=== PATIENT | male | born 1980 | race Caucasian/White ===

== ENCOUNTER → 2017-03-06 | Outpatient (CLI) | payer OTHER ==
[~2017-03-06] MED LIST: ATIVAN1 MG PO; CARAFATE1 GM/10 ML PO
== END | disposition home or self-care (01) ==
LOC: RAD 07:04
DX: M25.512 Pain in left shoulder (principal)

== ENCOUNTER 2017-05-05 18:46 | Emergency (ER) | payer OTHER ==
[~2017-05-05] VITALS: Wt 115.7 kg
[2017-05-05 18:58] LABS: BASO % 0.5 % (0.0-1.0); EOS # 0.4 10*3/uL (0.0-0.4); EOS % 7.3 % (1.0-4.0); HEMATOCRIT 44.5 % (42.0-52.0); HEMOGLOBIN 15.9 g/dl (14.0-18.0); LYMPH # 1.8 10*3/uL (1.3-4.4); LYMPH % 31.2 % (27.0-41.0); MEAN CELL VOLUME 86.4 fl (80.0-94.0); MEAN CORPUSCULAR HGB 30.9 pg (27.0-31.0); MEAN CORPUSCULAR HGB CONC 35.7 g/dl (33.0-37.0); MEAN PLATELET VOLUME 9.7 fl (9.6-12.3); MONO # 0.4 10*3/uL (0.1-1.0); MONO % 7.8 % (3.0-9.0); NEUT % 52.8 % (47.0-73.0); PLATELET COUNT AUTOMATED 248 10*3/uL (130-400); RED BLOOD COUNT 5.15 10*6/uL (4.50-5.90); RED CELL DISTRI WIDTH 12.4 % (0-14.5); WHITE BLOOD COUNT 5.6 10*3/uL (4.8-10.8)
[2017-05-05] MEDS ORDERED: QUETIAPINE FUM100 M3 PO (19:05)
[2017-05-05] MEDS ORDERED: HYDROXYZINE PAM25 M1 PO (19:05)
[2017-05-05 19:16] LABS: ACT PARTIAL THROMBO TIME 23.1 SECONDS (20.8-31.5); ALBUMIN 3.8 gm/dl (3.1-4.5); ALKALINE PHOSPHATASE 63 U/L (45-117); BUN 14 mg/dl (7-24); CHLORIDE 104 mmol/L (98-107); CREATININE 1.35 mg/dL (0.70-1.30); POTASSIUM 4.1 mmol/L (3.5-5.1); SGOT/AST 23 IU/L (3-35); SGPT/ALT 42 U/L (12-78); SODIUM 138 mmol/L (136-145); TOTAL PROTEIN 7.6 gm/dL (6.4-8.2)
[2017-05-05 19:17] LABS: TROPONIN I < 0.015 ng/ml (<0.045)
[2017-05-05] MEDS ORDERED: OMEPRAZOLE D/R20 MG PO (19:22)
== END 2017-05-05 21:33 | disposition home or self-care (01) ==
LOC: ED 18:46
PROVIDERS: Emergency Medicine
DX: R07.89 Other chest pain (principal); F17.200 Nicotine dependence, unspecified, uncomplicated; Z88.0 Allergy status to penicillin; Z88.1 Allergy status to other antibiotic agents; Z88.8 Allergy status to other drugs, medicaments and biological substances; Z79.899 Other long term (current) drug therapy

== ENCOUNTER → 2017-08-15 | Outpatient (CLI) | payer OTHER ==
[~2017-08-15] MED LIST changes: +HYDROXYZINE PAM25 M1 PO; +OMEPRAZOLE D/R20 MG PO; +QUETIAPINE FUM100 M3 PO
== END | disposition home or self-care (01) ==
LOC: LAB 07:32
DX: R07.89 Other chest pain (principal); R20.0 Anesthesia of skin

== ENCOUNTER → 2017-09-04 | Outpatient (CLI) | payer OTHER ==
--- NOTE | ~2017-09-04 | PF ---
[place], [place] PULMONARY FUNCTION TEST NAME: GABRIELA FINNEGAN UNIT #: [id number] ROOM: DOCTOR: MICHELLE BEARD MD,PETRONA BIRTHDATE: [birth year] DOS: 09/04/2017 ORDERED BY: Ming Peck, the nurse practitioner. HISTORY: The patient noted as a 37-year-old male, height of 75 inches, weight of 264 pounds, and BMI of 33. The testing was done for assessment of symptoms of shortness of breath with exertion, productive cough and wheezing. The patient noted tobacco use 1 pack of cigarettes per day for 16 years. SPIROMETRY: The FVC were recorded 6.18 liters as 100% predicted value. FEV1 of 4.51 liters at 90% predicted value both noted normal. Ratio of FEV1/FVC were recorded as 80%. Post-bronchodilator, no improvement occurred in the flows. Flow volume loop was noted normal. LUNG VOLUMES: Thoracic gas volume 96%, normal. Residual volume 114%. Normal total lung capacity of 19%, normal. The lung volumes were noted normal. Lung diffusion noted normal at 99%. The patient's airway resistance, passive conductance were noted normal. Partial improvement post-bronchodilator. FINAL IMPRESSION: Possibility of very mild reversible obstructive lung disease cannot be completely excluded, otherwise normal pulmonary function test. PETRONA MARTINEZ MD CM:PFREPORT:PULMONARY FUNCTION TEST [id number] PETRONA BEARD MD
== END | disposition home or self-care (01) ==
LOC: CP 09:37
DX: R06.89 Other abnormalities of breathing (principal)

== ENCOUNTER 2017-12-08 14:35 | Emergency (ER) | payer OTHER ==
[~2017-12-08] VITALS: Ht 187.9 cm; Wt 113.4 kg
[2017-12-08] MEDS ORDERED: ZANTAC 150150 MG PO (14:39)
[2017-12-08] MEDS ORDERED: Motrin,Rufen800 MG PO (17:27)
== END 2017-12-08 17:46 | disposition home or self-care (01) ==
LOC: ED 14:35
DX: S81.011A Laceration without foreign body, right knee, initial encounter (principal); S00.01XA Abrasion of scalp, initial encounter; M54.2 Cervicalgia; M25.551 Pain in right hip; Z79.899 Other long term (current) drug therapy; Z88.0 Allergy status to penicillin; Z88.1 Allergy status to other antibiotic agents; Z88.8 Allergy status to other drugs, medicaments and biological substances; V87.7XXA Person injured in collision between other specified motor vehicles (traffic), initial encounter; Y93.89 Activity, other specified; Y92.413 State road as the place of occurrence of the external cause; Y99.9 Unspecified external cause status

== ENCOUNTER 2017-12-22 15:33 | Emergency (ER) | payer OTHER ==
[~2017-12-22] VITALS: Ht 190.5 cm; Wt 115.2 kg
[~2017-12-22 15:33] MED LIST changes: +Motrin,Rufen800 MG PO; +ZANTAC 150150 MG PO
== END 2017-12-22 17:10 | disposition home or self-care (01) ==
LOC: ED 15:33
DX: S33 Dislocation and sprain of joints and ligaments of lumbar spine and pelvis (principal); F17.200 Nicotine dependence, unspecified, uncomplicated; Z48.02 Encounter for removal of sutures; Z88.0 Allergy status to penicillin; Z88.1 Allergy status to other antibiotic agents; Z88.8 Allergy status to other drugs, medicaments and biological substances; V49.9XXS Car occupant (driver) (passenger) injured in unspecified traffic accident, sequela

== ENCOUNTER 2018-01-25 23:40 | Emergency (ER) | payer OTHER ==
[~2018-01-25] VITALS: Ht 190.5 cm; Wt 117.9 kg
--- NOTE | ~2018-01-25 | EKG ---
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
[2018-01-25] MEDS ORDERED: HYDROXYZINE PAM50 MG PO (23:50)
[2018-01-25] MEDS ORDERED: OMEPRAZOLE D/R20 MG PO (23:50)
[2018-01-25] MEDS ORDERED: MIRTAZAPINE15 M2 PO (23:50)
[2018-01-25] MEDS ORDERED: IBU800 M1 PO (23:51)
[2018-01-26 01:11] LABS: BASO % 0.7 % (0.0-1.0); EOS # 0.3 10*3/uL (0.0-0.4); EOS % 5.6 % (1.0-4.0); HEMATOCRIT 43.9 % (42.0-52.0); HEMOGLOBIN 15.1 g/dl (14.0-18.0); LYMPH # 2.4 10*3/uL (1.3-4.4); LYMPH % 39.6 % (27.0-41.0); MEAN CELL VOLUME 89.6 fl (80.0-94.0); MEAN CORPUSCULAR HGB 30.8 pg (27.0-31.0); MEAN CORPUSCULAR HGB CONC 34.4 g/dl (33.0-37.0); MEAN PLATELET VOLUME 10.2 fl (9.6-12.3); MONO # 0.5 10*3/uL (0.1-1.0); MONO % 8.4 % (3.0-9.0); NEUT # 2.7 10*3/uL (2.3-7.9); NEUT % 45.5 % (47.0-73.0); PLATELET COUNT AUTOMATED 220 10*3/uL (130-400); RED CELL DISTRI WIDTH 12.1 % (0-14.5); WHITE BLOOD COUNT 5.9 10*3/uL (4.8-10.8)
[2018-01-26 01:26] LABS: BILIRUBIN NEGATIVE (NEGATIVE); BLOOD NEGATIVE (NEGATIVE); CLARITY CLEAR (CLEAR); COLOR YELLOW (YELLOW); GLUCOSE NEGATIVE (NEGATIVE); KETONE NEGATIVE (NEGATIVE); LEUKO ESTERASE NEGATIVE (NEGATIVE); NITRITE NEGATIVE (NEGATIVE); PH 5.5 (5.0-9.0); SPECIFIC GRAVITY 1.025 (1.005-1.030); UROBILINOGEN 0.2 E.U./dl (0.2-1.0)
[2018-01-26 01:28] LABS: ALBUMIN 4.1 gm/dl (3.1-4.5); ALKALINE PHOSPHATASE 56 U/L (45-117); BUN 15 mg/dl (7-24); CHLORIDE 107 mmol/L (98-107); ETHYL ALCOHOL < 3.0 mg/dl (<3); LIPASE 236 U/L (73-393); SGOT/AST 11 IU/L (3-35); SGPT/ALT 29 U/L (12-78); SODIUM 138 mmol/L (136-145); TOTAL PROTEIN 7.2 gm/dL (6.4-8.2); TROPONIN I < 0.015 ng/ml (<0.045)
[2018-01-26 01:37] LABS: URINE AMPHETAMINES < 1000 (1000ng/ml); URINE BARBITURATES < 200 (200ng/ml); URINE BENZODIAZEPINES < 200 (200ng/ml); URINE CANNABINOIDS (THC) < 50 (50ng/ml); URINE COCAINE < 300 (300ng/ml); URINE METHADONE < 300 (300ng/ml); URINE OPIATES < 300 (300ng/ml); URINE PHENCYCLIDINE < 25 (25ng/ml)
[2018-01-26] MEDS ORDERED: KETOROLAC10 MG PO (02:50)
[2018-01-26] MEDS ORDERED: NORCO 5-325 TA1 EACH PO (02:50)
== END 2018-01-26 02:55 | disposition home or self-care (01) ==
LOC: ED 23:40
PROVIDERS: Emergency Medicine Emergency Medical Services
DX: F43.10 Post-traumatic stress disorder, unspecified (principal); F07.81 Postconcussional syndrome; S30.0XXA Contusion of lower back and pelvis, initial encounter; M54.2 Cervicalgia; F17.200 Nicotine dependence, unspecified, uncomplicated; Z88.0 Allergy status to penicillin; Z88.1 Allergy status to other antibiotic agents; Z88.8 Allergy status to other drugs, medicaments and biological substances; Z79.899 Other long term (current) drug therapy; V49.60XA Unspecified car occupant injured in collision with unspecified motor vehicles in traffic accident, initial encounter; Y93.I9 Activity, other involving external motion; Y92.488 Other paved roadways as the place of occurrence of the external cause; Y99.8 Other external cause status

== ENCOUNTER 2018-03-05 09:22 | Emergency (ER) | payer OTHER ==
[~2018-03-05] VITALS: Ht 190.5 cm; Wt 115.7 kg
[~2018-03-05 09:22] MED LIST changes: +HYDROXYZINE PAM50 MG PO; +IBU800 M1 PO; +KETOROLAC10 MG PO; +MIRTAZAPINE15 M2 PO; +NORCO 5-325 TA1 EACH PO
[2018-03-05 09:55] LABS: BASO % 0.7 % (0.0-1.0); EOS # 0.4 10*3/uL (0.0-0.4); EOS % 6.3 % (1.0-4.0); HEMATOCRIT 44.3 % (42.0-52.0); HEMOGLOBIN 15.6 g/dl (14.0-18.0); LYMPH # 1.9 10*3/uL (1.3-4.4); LYMPH % 34.5 % (27.0-41.0); MEAN CELL VOLUME 87.7 fl (80.0-94.0); MEAN CORPUSCULAR HGB 30.9 pg (27.0-31.0); MEAN CORPUSCULAR HGB CONC 35.2 g/dl (33.0-37.0); MEAN PLATELET VOLUME 9.9 fl (9.6-12.3); MONO # 0.5 10*3/uL (0.1-1.0); MONO % 9.3 % (3.0-9.0); NEUT # 2.8 10*3/uL (2.3-7.9); PLATELET COUNT AUTOMATED 235 10*3/uL (130-400); RED BLOOD COUNT 5.05 10*6/uL (4.50-5.90); RED CELL DISTRI WIDTH 12.3 % (0-14.5); WHITE BLOOD COUNT 5.6 10*3/uL (4.8-10.8)
[2018-03-05 10:01] LABS: BILIRUBIN NEGATIVE (NEGATIVE); BLOOD NEGATIVE (NEGATIVE); CLARITY SL CLOUDY (CLEAR); COLOR YELLOW (YELLOW); GLUCOSE NEGATIVE (NEGATIVE); KETONE NEGATIVE (NEGATIVE); LEUKO ESTERASE NEGATIVE (NEGATIVE); NITRITE NEGATIVE (NEGATIVE); SPECIFIC GRAVITY >= 1.030 (1.005-1.030); UROBILINOGEN 0.2 E.U./dl (0.2-1.0)
[2018-03-05 10:09] LABS: ALBUMIN 4.2 gm/dl (3.1-4.5); ALKALINE PHOSPHATASE 56 U/L (45-117); BUN 14 mg/dl (7-24); CHLORIDE 107 mmol/L (98-107); CREATININE 1.25 mg/dL (0.70-1.30); POTASSIUM 3.6 mmol/L (3.5-5.1); SGOT/AST 15 IU/L (3-35); SGPT/ALT 36 U/L (12-78); SODIUM 140 mmol/L (136-145); TOTAL PROTEIN 7.8 gm/dL (6.4-8.2)
[2018-03-05 10:12] LABS: BACTERIA 2+; MUCOUS 2+
== END 2018-03-05 12:18 | disposition home or self-care (01) ==
LOC: ED 09:22
PROVIDERS: Emergency Medicine
DX: R10.32 Left lower quadrant pain (principal); R10.31 Right lower quadrant pain; M54.5 Low back pain; Z88.0 Allergy status to penicillin; Z88.1 Allergy status to other antibiotic agents; Z88.8 Allergy status to other drugs, medicaments and biological substances; Z79.899 Other long term (current) drug therapy

== ENCOUNTER → 2018-05-29 | Outpatient (CLI) | payer OTHER | END | disposition home or self-care (01) | LOC: MRI 13:40 | DX: M47.892 Other spondylosis, cervical region (principal); M51.36 Other intervertebral disc degeneration, lumbar region; M54.42 Lumbago with sciatica, left side; M54.41 Lumbago with sciatica, right side; M25.551 Pain in right hip; M25.552 Pain in left hip; V89.2XXD Person injured in unspecified motor-vehicle accident, traffic, subsequent encounter ==

== ENCOUNTER 2019-02-27 11:48 | Inpatient (IN) | payer OTHER ==
[~2019-02-27] VITALS: Ht 190.5 cm; Wt 116.7 kg
[2019-02-27] VITALS (7 sets, daily range): BP systolic 122–141; BP diastolic 60–88
--- NOTE | ~2019-02-27 | EKG ---
[place], [place] ELECTROCARDIOGRAM REPORT NAME: GABRIELA FINNEGAN UNIT #: [id number] ROOM: 526 DOCTOR: BETZAIDA DRAFT REPORT BIRTHDATE: [address] 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
--- NOTE | ~2019-02-27 | EKG ---
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
--- NOTE | ~2019-02-27 | EKG ---
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
[~2019-02-27 11:48] MED LIST changes: +DOXYCYCLINE100 M3 PO; +LEXAPRO20 MG PO; +NEURONTIN600 MG PO
[2019-02-27 12:32] LABS: HEMATOCRIT 40.4 % (42.0-52.0); HEMOGLOBIN 14.4 g/dl (14.0-18.0); MEAN CELL VOLUME 85.4 fl (80.0-94.0); MEAN CORPUSCULAR HGB 30.4 pg (27.0-31.0); MEAN CORPUSCULAR HGB CONC 35.6 g/dl (33.0-37.0); MEAN PLATELET VOLUME 10.3 fl (9.6-12.3); PLATELET COUNT AUTOMATED 179 10*3/uL (130-400); RED BLOOD COUNT 4.73 10*6/uL (4.50-5.90); RED CELL DISTRI WIDTH 12.8 % (0-14.5); WHITE BLOOD COUNT 6.2 10*3/uL (4.8-10.8)
[2019-02-27 12:41] LABS: ALBUMIN 3.8 gm/dl (3.1-4.5); ALKALINE PHOSPHATASE 107 U/L (45-117); BUN 12 mg/dl (7-24); CHLORIDE 99 mmol/L (98-107); CREATININE 1.48 mg/dL (0.70-1.30); POTASSIUM 2.8 mmol/L (3.5-5.1); SGOT/AST 65 IU/L (3-35); SGPT/ALT 80 U/L (12-78); SODIUM 137 mmol/L (136-145); TOTAL PROTEIN 7.9 gm/dL (6.4-8.2)
[2019-02-27 12:51] LABS: TROPONIN I < 0.015 ng/ml (<0.045)
[2019-02-27 12:57] LABS: ATYPICAL LYMPHS 11 % (0-0); BASOPHILS 1 % (0-1); PLATELET SUFFICIENCY NORMAL (NORMAL); TOTAL CELLS COUNTED 100 #CELLS
--- NOTE | 2019-02-27 16:41 | NUR ---
A 38, admitted to 5E, under the services of PURA Oliver DO with a diagnosis of LIBAN,SOB,SINUS TACHYCARDIA, COUGH, HYPOKALEMIA. Chief complaint is BRONCHITIS. Patient arrived via stretcher from ER. Monitor applied. Initial assessment completed. Vital signs taken and recorded. PURA OLIVER DO notified of admission to the unit. Orders received. See assessment for past medical history, medications and allergies. Patient and/or family oriented to unit. [address] visitation policy reviewed. Clothing/patient valuable form completed. DANY YBARRA
--- NOTE | 2019-02-27 17:19 | NUR ---
NOTIFIED DR. FOY THAT MED REC IS UP TO DATE AND THAT PATIENT IS STILL HAVING INTERMITTENT LEFT CHEST PAIN THAT RADIATES TO HIS LEFT ARM AND LEAVES HIS FINGERS TINGLING. ALSO, UPDATED THAT HE HAS AN INCISION FROM DR. CASSIDY FROM JANUARY 2019. DR. FOY STATED HE WOULD PUT IN ORDERS FOR WOUND CARE.
--- NOTE | 2019-02-27 21:10 | NUR ---
URINE FOR UA COLLECTED AND SENT TO LAB.
[2019-02-27 21:31] LABS: BILIRUBIN 1+ (NEGATIVE); BLOOD NEGATIVE (NEGATIVE); CLARITY SL CLOUDY (CLEAR); COLOR YELLOW (YELLOW); GLUCOSE NEGATIVE (NEGATIVE); KETONE NEGATIVE (NEGATIVE); LEUKO ESTERASE NEGATIVE (NEGATIVE); NITRITE POSITIVE (NEGATIVE); PH 6.5 (5.0-9.0); SPECIFIC GRAVITY 1.025 (1.005-1.030)
[2019-02-27 21:43] LABS: BACTERIA TRACE; EPITHELIAL CELLS 0-2; MUCOUS 2+
[2019-02-28] VITALS: BP 124/60
--- NOTE | 2019-02-28 01:13 | NUR ---
24 HOUR CHART CHECK DONE
[2019-02-28 06:00] LABS: HEMATOCRIT 33.1 % (42.0-52.0); HEMOGLOBIN 11.4 g/dl (14.0-18.0); MEAN CORPUSCULAR HGB 30.3 pg (27.0-31.0); MEAN CORPUSCULAR HGB CONC 34.4 g/dl (33.0-37.0); PLATELET COUNT AUTOMATED 141 10*3/uL (130-400); RED BLOOD COUNT 3.76 10*6/uL (4.50-5.90); RED CELL DISTRI WIDTH 12.9 % (0-14.5); WHITE BLOOD COUNT 5.4 10*3/uL (4.8-10.8)
[2019-02-28 06:09] LABS: HEPATITIS B SURFACE AG Negative (Negative); HEPATITIS C VIRUS ANTIBODY 0.1 s/co (0.0-0.9)
[2019-02-28 06:16] LABS: BUN 12 mg/dl (7-24); CHLORIDE 108 mmol/L (98-107); CREATININE 1.17 mg/dL (0.70-1.30); POTASSIUM 3.2 mmol/L (3.5-5.1); SODIUM 142 mmol/L (136-145)
[2019-02-28 06:57] LABS: ATYPICAL LYMPHS 4 % (0-0); PLATELET SUFFICIENCY NORMAL (NORMAL); POLYCHROMASIA SLIGHT; TOTAL CELLS COUNTED 100 #CELLS
[2019-02-28 08:00] VITALS: BP 117/63
[2019-02-28] MEDS ORDERED: PREDNISONE10 MG PO (09:46)
[2019-02-28] MEDS ORDERED: AVPAK AZITHROM250 MG PO (09:46)
--- NOTE | 2019-02-28 10:25 | NUR ---
IV X 2 REMOVED. MUSIC PROMOTER REMOVED. PATIENT EDUCATED ON SMOKING CESSATION, ON NEW MEDICATIONS, AND TO DRINK PLENTY OF WATER TO KEEP HYDRATED. ALL QUESTIONS ANSWERED. PATIENT LEFT WITH FIANCE WITH ALL DOCUMENTED BELONGINGS. REFUSED WHEELCHAIR.
--- NOTE | 2019-02-28 11:51 | NUR ---
Photographer Finish in to talk to patient. Patient states lives at HOME with FIANCE. There are FEW steps in the home. Physician: CAROLINA Pharmacy: [facility] Home health services: NONE Patient's level of ADLs: INDEPENDENT Patient has working utilities: YES DME: NONE Follow-up physician's appointment after d/c: WILL BE MADE BY HOSITALIST NURSE DIRECTOR ON DISCHARGE Does patient want to access PORTAL?: NO Discharge plan PT LIVES AT HOME WITH HIS FIANCE AND IS INDEPENDENT IN HIS CARE. DENIES HE WILL HAVE NEEDS ON DISCHARGE. WILL CONTINUE TO FOLLOW. . STATES HE WILL HAVE A RIDE HOME. NELIA DONOVAN
== END 2019-02-28 10:25 | disposition home or self-care (01) | DRG 602 ==
LOC: ED 11:48 → EDHOLD 13:31 → 5E 13:31
PROVIDERS: Emergency Medicine; Internal Medicine; ADMIT Internal Medicine
DX: L03.311 Cellulitis of abdominal wall (principal); N17.0 Acute kidney failure with tubular necrosis; E87.2 Acidosis; L02.211 Cutaneous abscess of abdominal wall; F41.9 Anxiety disorder, unspecified; R74.0 Nonspecific elevation of levels of transaminase and lactic acid dehydrogenase [LDH]; E87.6 Hypokalemia; R73.9 Hyperglycemia, unspecified; J40 Bronchitis, not specified as acute or chronic; K21.9 Gastro-esophageal reflux disease without esophagitis; I10 Essential (primary) hypertension; E03.9 Hypothyroidism, unspecified; G62.9 Polyneuropathy, unspecified; F43.10 Post-traumatic stress disorder, unspecified; D64.9 Anemia, unspecified; G89.29 Other chronic pain; M54.9 Dorsalgia, unspecified; Z88.1 Allergy status to other antibiotic agents; Z88.8 Allergy status to other drugs, medicaments and biological substances; Z98.52 Vasectomy status; Z87.891 Personal history of nicotine dependence; Z82.49 Family history of ischemic heart disease and other diseases of the circulatory system; Z84.89 Family history of other specified conditions; Z79.899 Other long term (current) drug therapy

== ENCOUNTER 2019-03-23 09:27 | Inpatient (IN) | payer OTHER ==
[~2019-03-23] VITALS: Ht 190.5 cm; Wt 116.7 kg
[~2019-03-23 09:27] MED LIST changes: +AVPAK AZITHROM250 MG PO; +PREDNISONE10 MG PO
--- NOTE | 2019-03-23 09:42 | NUR ---
PT UNABLE TO PROVIDE URINE SPECIMEN AT THIS TIME.
[2019-03-23 09:44] VITALS: BP 130/76
[2019-03-23 09:57] LABS: BASO % 0.2 % (0.0-1.0); EOS # 0.1 10*3/uL (0.0-0.4); EOS % 0.7 % (1.0-4.0); HEMATOCRIT 42.3 % (42.0-52.0); HEMOGLOBIN 14.3 g/dl (14.0-18.0); LYMPH # 3.4 10*3/uL (1.3-4.4); LYMPH % 25.5 % (27.0-41.0); MEAN CELL VOLUME 89.2 fl (80.0-94.0); MEAN CORPUSCULAR HGB 30.2 pg (27.0-31.0); MEAN CORPUSCULAR HGB CONC 33.8 g/dl (33.0-37.0); MEAN PLATELET VOLUME 9.5 fl (9.6-12.3); MONO # 1.1 10*3/uL (0.1-1.0); MONO % 8.5 % (3.0-9.0); NEUT # 8.6 10*3/uL (2.3-7.9); NEUT % 64.8 % (47.0-73.0); PLATELET COUNT AUTOMATED 232 10*3/uL (130-400); RED BLOOD COUNT 4.74 10*6/uL (4.50-5.90); RED CELL DISTRI WIDTH 13.4 % (0-14.5); WHITE BLOOD COUNT 13.2 10*3/uL (4.8-10.8)
[2019-03-23 10:12] LABS: ALBUMIN 3.6 gm/dl (3.1-4.5); ALKALINE PHOSPHATASE 129 U/L (45-117); BUN 10 mg/dl (7-24); CHLORIDE 96 mmol/L (98-107); CREATININE 1.45 mg/dL (0.70-1.30); POTASSIUM 3.4 mmol/L (3.5-5.1); SGOT/AST 22 IU/L (3-35); SGPT/ALT 48 U/L (12-78); SODIUM 132 mmol/L (136-145); TOTAL PROTEIN 8.5 gm/dL (6.4-8.2)
[2019-03-23 10:16] LABS: TROPONIN I < 0.015 ng/ml (<0.045)
[2019-03-23 11:17] VITALS: BP 120/70
--- NOTE | 2019-03-23 11:17 | NUR ---
A 38, admitted to 5E, under the services of JOE Johnson DO with a diagnosis of CELLULITIS, SEPSIS. Chief complaint is INSECT BITE. Patient arrived via STRETCHER from ER. Monitor applied. Initial assessment completed. Vital signs taken and recorded. JOE JOHNSON DO notified of admission to the unit. Orders received. See assessment for past medical history, medications and allergies. Patient and/or family oriented to unit. [address] visitation policy reviewed. Clothing/patient valuable form completed. SHELIA RUSHING
[2019-03-23] MEDS ORDERED: NEXIUM20 M1 PO (11:53)
--- NOTE | 2019-03-23 11:54 | NUR ---
MED REC COMPLETED
[2019-03-23 12:50] VITALS: BP 115/59
--- NOTE | 2019-03-23 13:04 | NUR ---
DR. HILL NOTIFIED OF CONSULT.
[2019-03-23 16:00] VITALS: BP 127/81
--- NOTE | 2019-03-23 16:37 | NUR ---
OFF FLOOR FOR CT.
--- NOTE | 2019-03-23 18:21 | NUR ---
NORCO GIVEN FOR C/O RT HIP/THIGH PAIN TO WOUND SITE RATED 8/10 THAT WORSENED WITH EXERTION. WILL MONITOR. CALL LIGHT IN REACH. FIANCE IN ROOM AT BEDSIDE. SITTING UP AT BEDSIDE, EAT.
--- NOTE | 2019-03-23 19:16 | NUR ---
PER PT, PAIN IS BETTER. NORCO EFFECTIVE. PAIN RATED 0/10 BUT STILL "SHOOTS" WHEN MOVING ARND.
[2019-03-23 20:00] VITALS: BP 126/67
--- NOTE | 2019-03-23 23:30 | NUR ---
24 HOUR CHART CHECK COMPLETE.
[2019-03-24] VITALS (9 sets, daily range): BP systolic 106–130; BP diastolic 56–78
--- NOTE | 2019-03-24 05:52 | NUR ---
DR ZARATE AWARE OF FEMUR CT RESULTS.
[2019-03-24 07:13] LABS: BASO % 0.3 % (0.0-1.0); EOS # 0.2 10*3/uL (0.0-0.4); EOS % 3.3 % (1.0-4.0); HEMATOCRIT 38.2 % (42.0-52.0); HEMOGLOBIN 12.8 g/dl (14.0-18.0); LYMPH # 2.1 10*3/uL (1.3-4.4); LYMPH % 29.1 % (27.0-41.0); MEAN CELL VOLUME 89.9 fl (80.0-94.0); MEAN CORPUSCULAR HGB 30.1 pg (27.0-31.0); MEAN CORPUSCULAR HGB CONC 33.5 g/dl (33.0-37.0); MEAN PLATELET VOLUME 9.5 fl (9.6-12.3); MONO # 0.6 10*3/uL (0.1-1.0); NEUT # 4.3 10*3/uL (2.3-7.9); PLATELET COUNT AUTOMATED 205 10*3/uL (130-400); RED BLOOD COUNT 4.25 10*6/uL (4.50-5.90); RED CELL DISTRI WIDTH 13.5 % (0-14.5); WHITE BLOOD COUNT 7.3 10*3/uL (4.8-10.8)
[2019-03-24 07:35] LABS: ALKALINE PHOSPHATASE 100 U/L (45-117); BUN 9 mg/dl (7-24); CHLORIDE 107 mmol/L (98-107); CHOLESTEROL 171 mg/dL (<200); CREATININE 1.08 mg/dL (0.70-1.30); HDL CHOLESTEROL 27 mg/dl (40-60); LDL CHOLESTEROL 114 mg/dL (9-159); PHOSPHOROUS 2.3 mg/dL (2.5-4.9); POTASSIUM 3.4 mmol/L (3.5-5.1); SGOT/AST 22 IU/L (3-35); SGPT/ALT 46 U/L (12-78); SODIUM 139 mmol/L (136-145); TOTAL PROTEIN 7.4 gm/dL (6.4-8.2); TRIGLYCERIDES 149 mg/dl (<150); VLDL CHOLESTEROL 30 mg/dL (6-40)
[2019-03-24 07:40] LABS: FREE T4 1.09 ng/dl (0.76-1.46)
[2019-03-24 08:10] LABS: ACT PARTIAL THROMBO TIME 28.6 SECONDS (20.0-32.1); INTERNATIONAL NORM RATIO 0.9 (2.0-3.5)
[2019-03-24 08:20] LABS: VITAMIN D, 25-HYDROXY 21.2 ng/mL (30-100)
[2019-03-24 08:59] LABS: BILIRUBIN NEGATIVE (NEGATIVE); BLOOD NEGATIVE (NEGATIVE); CLARITY CLEAR (CLEAR); COLOR YELLOW (YELLOW); GLUCOSE NEGATIVE (NEGATIVE); KETONE NEGATIVE (NEGATIVE); LEUKO ESTERASE NEGATIVE (NEGATIVE); NITRITE NEGATIVE (NEGATIVE); PH 5.5 (5.0-9.0); UROBILINOGEN 0.2 E.U./dl (0.2-1.0)
[2019-03-24 09:17] LABS: BACTERIA 1+
--- NOTE | 2019-03-24 09:43 | NUR ---
GABRIELA FINNEGAN [id number] Please refer to the physician's history and physical for past medical history, comorbid conditions, and allergies. Diagnosis: CELLULITIS SEPSIS Alhaji Score: 21,LOW OR NO RISK WOUND DESCRIPTIONS: Wound Number: 1 Location of the wound: left rib area Thickness: Full Size: 0.4cm x 0.6cm x <0.1cm Tunneling: none Undermining: none Sinus Tract: none Presence of Exudate: none Amount: None Color: Brown, yellow Odor: None Periwound Skin Appearance: Erythema firmness measuring 3.0cm x 5.5cm Wound edges: approximated Pain (associated with wound): tender to touch How does patient state this happened? pt stated he was bite by something in [facility]. Wound Number: 2 Location of the wound: right upper thigh Thickness: Full Size: 2.5cm x 3.5cm x 0.5cm Tunneling: none Undermining: none Sinus Tract: none Presence of Exudate: Purulent Amount: Light Color: red, yellow Odor: None Periwound Skin Appearance: Erythema 30.0cm x 29.0cm firmness 9.0cm x 15.0cm Wound edges: approximated Pain (associated with wound): tender to touch How does patient state this happened? pt stated he was bite by something in [facility]. Surface the patient is resting on: Isoflex SKIN PREVENTION RECOMMENDATION: 1. Pressure redistribution support surface as appropriate 2. Elevate heels 3. Remove boots/TEDS every shift and reapply 4. Head of bed 30 degrees as tolerated 5. Assess nutrition and hydration 6. Manage moisture 7. Avoid the use of containment devices while in bed 8. Use absorptive products on surfaces limit layers of linens on bed 9. Turn and reposition every 1-2 hours in bed and every 1 hour in chair as tolerated 10. Weight shifts every 15 minutes while up in chair 11. Offloading with pillows or device to keep heels elevated off bed 12. Monitor skin at least every shift 13. Inspect under medical devices twice a day WOUND TREATMENT RECOMMENDATIONS: Patient request Dr. Mchugh perform the surgery since he done so in the past. This nurse informed nurse caring for patient as well as Dr. Lolita Mchugh stated he will see the patient later today. Nurse Olamide DAVIS caring for patient stated she would notify Dr. Oden. Await post op wound care orders. Patient stated he will make his own follow up appointment in the wound care center upon discharge since he followed there in the past with Dr. Mchugh.
--- NOTE | 2019-03-24 09:46 | NUR ---
PT OFF FLOOR VIA BED TO OR FOR I&D WITH DR CASSIDY.
--- NOTE | 2019-03-24 11:56 | NUR ---
PT RETURNED FROM OR VIA BED. REPORT RECIEVED FROM APRIL DAVIS.ASSESSMENT COMPLETE. PT VOICES NO NEEDS AT THIS TIME. CALL LIGHT IN REACH.
--- NOTE | 2019-03-24 12:37 | NUR ---
Yard Jockey in to talk to patient. Patient states lives at HOME with FIANCE. There are 21 steps in the home. Physician: CAROLINA Pharmacy: [facility] Home health services: NONE Patient's level of ADLs: INDEPENDENT Patient has working utilities: YES DME: NONE Follow-up physician's appointment after d/c: WILL BE MADE BY HOSPITALIST NURSE DIRECTOR ON DISCHARGE Does patient want to access PORTAL?: NO Discharge plan PT LIVES AT HOME WITH HIS FIANCE AND IS INDEPENDENT IN HIS CARE. DENIES HOME NEEDS ON DISCHARGE. WILL CONTINUE TO FOLLOW. WILL HAVE A RIDE HOME ON DISCHARGE.. NELIA DONOVAN
--- NOTE | 2019-03-24 13:17 | NUR ---
IV started left forearm with #22 protective cath after 1 attempts. Site prepped with Chloroprep. Sterile dressing applied. Patient tolerated procedure well. IV infusing at 100 cc/hr. MARLENE MAY
--- NOTE | 2019-03-24 20:00 | NUR ---
24 HOUR CHART CHECK COMPLETE.
--- NOTE | 2019-03-24 21:52 | NUR ---
PRN NORCO ADMINISTERED FOR PT C/O TENDERNESS TO I&D SITES RATED A 7/10 ON THE PAIN SCALE. RT HIP/GROIN RED,TENDER, AND WARM TO TOUCH SURROUNDING AREA OF SUSPECTED BITE. BLOODY DRAINAGE NOTED ON BOTH DRESSINGS. WILL CONTINUE TO MONITOR AND REASSESS. CALL LIGHT IN REACH.
--- NOTE | 2019-03-24 22:57 | NUR ---
PT STATES THE PAIN MEDICATION WAS EFFECTIVE.
[2019-03-25 00:01] VITALS: BP 126/78
--- NOTE | 2019-03-25 05:01 | NUR ---
NORCO ADMINISTERED PRESCRIBED FOR PT C/O PAIN AT SURGICAL SITES TO RT HIP/GROIN AND LT FLANK AND CHRONIC BACK PAIN. THE PT RATES THE PAIN A 7 ON THE PAIN SCALE. WILL CONTINUE TO MONITOR AND REASSESS. CALL LIGHT IN REACH.
[2019-03-25 07:13] LABS: BASO % 0.5 % (0.0-1.0); EOS # 0.3 10*3/uL (0.0-0.4); EOS % 6.7 % (1.0-4.0); HEMATOCRIT 33.3 % (42.0-52.0); HEMOGLOBIN 10.9 g/dl (14.0-18.0); LYMPH # 1.7 10*3/uL (1.3-4.4); LYMPH % 41.9 % (27.0-41.0); MEAN CORPUSCULAR HGB 30.1 pg (27.0-31.0); MEAN CORPUSCULAR HGB CONC 32.7 g/dl (33.0-37.0); MEAN PLATELET VOLUME 9.8 fl (9.6-12.3); MONO # 0.4 10*3/uL (0.1-1.0); MONO % 9.9 % (3.0-9.0); NEUT # 1.7 10*3/uL (2.3-7.9); NEUT % 40.8 % (47.0-73.0); PLATELET COUNT AUTOMATED 193 10*3/uL (130-400); RED BLOOD COUNT 3.62 10*6/uL (4.50-5.90); RED CELL DISTRI WIDTH 13.2 % (0-14.5); WHITE BLOOD COUNT 4.2 10*3/uL (4.8-10.8)
[2019-03-25 07:38] LABS: CHLORIDE 106 mmol/L (98-107); POTASSIUM 3.6 mmol/L (3.5-5.1); SODIUM 139 mmol/L (136-145)
[2019-03-25 07:45] LABS: BUN 6 mg/dl (7-24); CREATININE 0.97 mg/dL (0.70-1.30)
[2019-03-25 08:00] VITALS: BP 104/50
--- NOTE | 2019-03-25 09:40 | NUR ---
PATIENT MEDICATED WITH NORCO FOR COMPLAINTS OF RIGHT SIDED PAIN WHERE THE BITE IS. WILL CHECK EFFECTIVENESS.
--- NOTE | 2019-03-25 11:00 | NUR ---
PATIENT STATES CHILCOOT EFFECTIVE. WILL CONTINUE TO MONITOR.
[2019-03-25 12:00] VITALS: BP 143/77
--- NOTE | 2019-03-25 12:12 | NUR ---
PT CONTINUES TO DENY NEEDS AT HOME AT THIS TIME. WILL CONTINUE TO FOLLOW.
[2019-03-25] MEDS ORDERED: SEPTDS PO (16:02)
--- NOTE | 2019-03-25 16:28 | NUR ---
PATIENT REFUSING DISCHARGE PHOTOS OF WOUNDS BECAUSE DRESSINGS WERE JUST CHANGED.
--- NOTE | 2019-03-25 16:34 | NUR ---
Discharge instructions reviewed with patient/family. Patient receptive and verbalizes understanding. Follow-up care arranged. Written instructions given to patient/family. IV REMOVED, HEART MONITOR TAKEN OFF, PATIENT AMBULATED OFF FLOOR WITH D/C INSTRUCTIONS IN HAND. REFUSED D/C WOUND CARE PHOTOS. RANDI COBB
[2019-04-11] MEDS ORDERED: LIPITOR40 MG PO (11:14)
[2019-04-11] MEDS ORDERED: POTASSIUM99 M5 PO (11:14)
[2019-04-11] MEDS ORDERED: MULTIVITAMINS1 EAC5 PO (11:14)
[2019-04-11] MEDS ORDERED: LEVOTHYROXINE50 MCG PO (11:15)
[2019-04-11] MEDS ORDERED: VISTARIL50 MG PO (11:16)
[2019-04-11] MEDS ORDERED: PRILOSEC20 M1 PO (11:18)
== END 2019-03-25 16:34 | disposition home or self-care (01) | DRG 853 ==
LOC: ED 09:27 → 5E 10:15 → EDHOLD 10:15 → 5E 10:30
PROVIDERS: Emergency Medicine; Internal Medicine; Student in an Organized Health Care Education/Training Program; ADMIT Emergency Medicine
PROC: 0JBL0ZZ Excision of Right Upper Leg Subcutaneous Tissue and Fascia, Open Approach (ICD-10-PCS; principal; 2019-03-24)
PROC: 0JB80ZZ Excision of Abdomen Subcutaneous Tissue and Fascia, Open Approach (ICD-10-PCS; 2019-03-24)
DX: A41.9 Sepsis, unspecified organism (principal); N17.0 Acute kidney failure with tubular necrosis; L03.115 Cellulitis of right lower limb; E87.1 Hypo-osmolality and hyponatremia; L02.415 Cutaneous abscess of right lower limb; L02.211 Cutaneous abscess of abdominal wall; R65.20 Severe sepsis without septic shock; E87.6 Hypokalemia; E87.8 Other disorders of electrolyte and fluid balance, not elsewhere classified; R73.9 Hyperglycemia, unspecified; E80.6 Other disorders of bilirubin metabolism; F43.10 Post-traumatic stress disorder, unspecified; I10 Essential (primary) hypertension; K21.9 Gastro-esophageal reflux disease without esophagitis; F41.9 Anxiety disorder, unspecified; E03.9 Hypothyroidism, unspecified; G62.9 Polyneuropathy, unspecified; J45.909 Unspecified asthma, uncomplicated; S71.151A Open bite, right thigh, initial encounter; W57.XXXA Bitten or stung by nonvenomous insect and other nonvenomous arthropods, initial encounter; Y93.89 Activity, other specified; Y99.8 Other external cause status; Z88.0 Allergy status to penicillin; Z87.891 Personal history of nicotine dependence; Z88.8 Allergy status to other drugs, medicaments and biological substances; Z88.1 Allergy status to other antibiotic agents; Z98.52 Vasectomy status; Z82.49 Family history of ischemic heart disease and other diseases of the circulatory system; Z83.49 Family history of other endocrine, nutritional and metabolic diseases; Z84.89 Family history of other specified conditions; Z86.711 Personal history of pulmonary embolism; Z79.899 Other long term (current) drug therapy; Z86.14 Personal history of Methicillin resistant Staphylococcus aureus infection; Y92.89 Other specified places as the place of occurrence of the external cause

== ENCOUNTER → 2019-04-11 | Outpatient (CLI) | payer OTHER ==
[~2019-04-11] MED LIST changes: +LEVOTHYROXINE50 MCG PO; +LIPITOR40 MG PO; +MULTIVITAMINS1 EAC5 PO; +NEXIUM20 M1 PO; +POTASSIUM99 M5 PO; +PRILOSEC20 M1 PO; +SEPTDS PO; +VISTARIL50 MG PO
--- NOTE | 2019-04-11 12:15 | NUR ---
INFORMED CONSENT OBTAINED FOR STANDARD GXT WITH DR. RITTER. RESTING EKG NSR WITH A SUPINE HR OF 73 WITH BP OF 118/74 AND HR OF 97 WITH BP OF 110/66 IN STANDING POSITION. PT COMPLETED 8:19 OF A KINDRA PROTOCOL AND COMPLETED 2:19 OF STAGE III AT 3.4 MPH AND 14% GRADE. REACHED A PEAK HR OF 190 WHICH IS 106% OF PREDICTED MAX WITH A PEAK BP OF 150/80. TEST TERMINATED BECAUSE OF FATIGUE AND SOB. IN RECOVERY C/O OF CENTRAL AND LEFT CHEST DISCOMFORT THAT WAS A 10 ON PAIN SCALE. HAD NO C/O OF CHEST DISCOMFORT WITH EXERCISE. WITH CLARIFICATION OF WHEN DISCOMFORT STARTED PT STATES, "GOT IT HALF WAY." AT 1:00 RECOVERY DECREASED TO 7 ON SCALE AND AT 3:00 RECOVERY DECREASED TO A 5 ON PAIN SCALE. CHEST DISCOMFORT RELIEVED END OF RECOVERY. PT STATES, "IT'S THE SAME CHEST DISCOMFORT I GET WITH WALKING AT [facility]." DID C/O DIZZINESS WITH WALKING BUT STATED "IT'S OK" WHEN CLARIFYING ABILITY TO CONTINUE WALKING. HAD NO ST CHANGES. HAS AN AVERAGE EXERCISE TOLERANCE. ABNORMAL WITH CHEST PAIN. LAST RECOVERY HR OF 127 WITH BP OF 126/68 AT 5:00 RECOVERY. IV DISCONTINUED AND DISCHARGED IN STABLE CONDITION.
== END | disposition home or self-care (01) ==
LOC: CARD 00:42
DX: R07.89 Other chest pain (principal)

== ENCOUNTER → 2019-05-22 | Outpatient (CLI) | payer OTHER ==
[2019-05-22 15:27] LABS: BUN 12 mg/dl (7-24); CHLORIDE 101 mmol/L (98-107); CREATININE 1.28 mg/dL (0.70-1.30); POTASSIUM 3.8 mmol/L (3.5-5.1); SODIUM 137 mmol/L (136-145)
== END | disposition home or self-care (01) ==
LOC: LAB 14:25
PROVIDERS: Internal Medicine Cardiovascular Disease
DX: I10 Essential (primary) hypertension (principal)

== ENCOUNTER → 2019-12-10 | Outpatient (CLI) | payer OTHER | END | disposition home or self-care (01) | LOC: US 09:28 | DX: K76.0 Fatty (change of) liver, not elsewhere classified (principal); I10 Essential (primary) hypertension ==

== ENCOUNTER → 2020-04-22 | Outpatient (CLI) | payer OTHER | END | disposition home or self-care (01) | LOC: MRI 04-19 10:00 | PROVIDERS: ATTEND Registered Nurse Critical Care Medicine | DX: M51.26 Other intervertebral disc displacement, lumbar region (principal) ==

== ENCOUNTER 2020-08-03 15:01 | Emergency (ER) | payer OTHER ==
[~2020-08-03] VITALS: Ht 187.9 cm; Wt 131.5 kg
[2020-08-03] MEDS ORDERED: VIBRAMYCIN100 MG PO (15:47)
== END 2020-08-03 16:33 | disposition home or self-care (01) ==
LOC: ED 15:01
DX: L03.311 Cellulitis of abdominal wall (principal); G47.33 Obstructive sleep apnea (adult) (pediatric); J44.9 Chronic obstructive pulmonary disease, unspecified; F41.9 Anxiety disorder, unspecified; I10 Essential (primary) hypertension; F31.9 Bipolar disorder, unspecified; Z86.14 Personal history of Methicillin resistant Staphylococcus aureus infection; Z88.0 Allergy status to penicillin; Z88.1 Allergy status to other antibiotic agents; Z88.8 Allergy status to other drugs, medicaments and biological substances; Z79.899 Other long term (current) drug therapy; Z98.890 Other specified postprocedural states; Z87.891 Personal history of nicotine dependence

== ENCOUNTER → 2020-08-30 | Outpatient (CLI) | payer OTHER ==
[~2020-08-30] MED LIST changes: +VIBRAMYCIN100 MG PO
[2020-08-30 09:17] LABS: BASO % 0.6 % (0.0-1.0); EOS # 0.2 10*3/uL (0.0-0.4); EOS % 3.9 % (1.0-4.0); HEMATOCRIT 42.5 % (42.0-52.0); LYMPH # 2.5 10*3/uL (1.3-4.4); LYMPH % 48.4 % (27.0-41.0); MEAN CELL VOLUME 86.4 fl (80.0-94.0); MEAN CORPUSCULAR HGB 30.9 pg (27.0-31.0); MEAN CORPUSCULAR HGB CONC 35.8 g/dl (33.0-37.0); MEAN PLATELET VOLUME 10.2 fl (9.6-12.3); MONO # 0.3 10*3/uL (0.1-1.0); NEUT # 2.1 10*3/uL (2.3-7.9); NEUT % 40.9 % (47.0-73.0); PLATELET COUNT AUTOMATED 273 10*3/uL (130-400); RED BLOOD COUNT 4.92 10*6/uL (4.50-5.90); RED CELL DISTRI WIDTH 13.6 % (0-14.5); WHITE BLOOD COUNT 5.1 10*3/uL (4.8-10.8)
[2020-08-30 09:53] LABS: CHLORIDE 103 mmol/L (98-107); POTASSIUM 3.1 mmol/L (3.5-5.1); SODIUM 140 mmol/L (136-145)
[2020-08-30 09:59] LABS: FERRITIN 102.6 ng/mL (22.0-322.0)
[2020-08-30 10:04] LABS: ALBUMIN 3.8 gm/dl (3.1-4.5); ALKALINE PHOSPHATASE 85 U/L (45-117); BUN 7 mg/dl (7-24); CREATININE 1.39 mg/dL (0.70-1.30); IRON 76 ug/dL (65-175); SGOT/AST 39 IU/L (3-35); SGPT/ALT 90 U/L (12-78); TOTAL IRON BINDING CAPACITY 293 ug/dl (250-450); TOTAL PROTEIN 7.9 gm/dL (6.4-8.2)
[2020-08-31 06:07] LABS: HEP B CORE AB, IGM Negative (Negative); HEPATITIS B SURFACE AB Reactive (.); HEPATITIS B SURFACE AG Negative (Negative); HEPATITIS Be ANTIGEN Negative (Negative)
[2020-08-31 08:08] LABS: ALPHA-1-ANTITRYPSIN, SERUM 101 mg/dL (101-187)
[2020-08-31 15:08] LABS: t-TRANSGLUTAMINASE (tTG) IGA <2 U/mL (0-3); t-TRANSGLUTAMINASE (tTG) IgG 7 U/mL (0-5)
== END | disposition home or self-care (01) ==
LOC: LAB 08:28
PROVIDERS: ATTEND Internal Medicine Gastroenterology
DX: R79.89 Other specified abnormal findings of blood chemistry (principal)

== ENCOUNTER → 2020-10-28 | Outpatient (CLI) | payer OTHER ==
[2020-10-28 11:21] LABS: BASO % 0.3 % (0.0-1.0); EOS # 0.1 10*3/uL (0.0-0.4); EOS % 1.5 % (1.0-4.0); HEMATOCRIT 41.9 % (42.0-52.0); LYMPH # 3.4 10*3/uL (1.3-4.4); LYMPH % 35.6 % (27.0-41.0); MEAN CELL VOLUME 85.2 fl (80.0-94.0); MEAN CORPUSCULAR HGB 31.1 pg (27.0-31.0); MEAN CORPUSCULAR HGB CONC 36.5 g/dl (33.0-37.0); MONO # 0.7 10*3/uL (0.1-1.0); MONO % 7.4 % (3.0-9.0); NEUT # 5.2 10*3/uL (2.3-7.9); PLATELET COUNT AUTOMATED 303 10*3/uL (130-400); RED BLOOD COUNT 4.92 10*6/uL (4.50-5.90); RED CELL DISTRI WIDTH 13.2 % (0-14.5); WHITE BLOOD COUNT 9.4 10*3/uL (4.8-10.8)
[2020-10-28 12:10] LABS: ALBUMIN 4.1 gm/dl (3.1-4.5); ALKALINE PHOSPHATASE 98 U/L (45-117); BUN 10 mg/dl (7-24); CHLORIDE 100 mmol/L (98-107); CREATININE 1.29 mg/dL (0.70-1.30); POTASSIUM 2.6 mmol/L (3.5-5.1); SGOT/AST 25 IU/L (3-35); SGPT/ALT 70 U/L (12-78); SODIUM 138 mmol/L (136-145); TOTAL IRON BINDING CAPACITY 268 ug/dl (250-450); TOTAL PROTEIN 8.1 gm/dL (6.4-8.2)
[2020-10-28 12:14] LABS: IRON 43 ug/dL (65-175)
[2020-10-28 12:23] LABS: FERRITIN 100.9 ng/mL (22.0-322.0)
[2020-10-29 05:07] LABS: ALPHA-1-ANTITRYPSIN, SERUM 121 mg/dL (101-187)
[2020-10-29 08:08] LABS: HEP B CORE AB TOTAL Negative (Negative); HEPATITIS B SURFACE AB Reactive (.); HEPATITIS B SURFACE AG Negative (Negative); HEPATITIS Be ANTIGEN Negative (Negative)
[2020-10-29 15:07] LABS: t-TRANSGLUTAMINASE (tTG) IGA <2 U/mL (0-3); t-TRANSGLUTAMINASE (tTG) IgG 7 U/mL (0-5)
== END | disposition home or self-care (01) ==
LOC: LAB 10:52
PROVIDERS: ATTEND Internal Medicine Gastroenterology
DX: R79.89 Other specified abnormal findings of blood chemistry (principal)

== ENCOUNTER → 2020-11-01 | Outpatient (CLI) | payer OTHER | END | disposition home or self-care (01) | LOC: LAB 09:37 | PROVIDERS: ATTEND Internal Medicine Gastroenterology | DX: R19.7 Diarrhea, unspecified (principal); R31.9 Hematuria, unspecified ==

== ENCOUNTER → 2021-01-13 | Outpatient (CLI) | payer OTHER ==
[~2021-01-13] MED LIST changes: +CLINDAMYCIN HC300 MG PO
== END | disposition home or self-care (01) ==
LOC: US 03:31
PROVIDERS: ATTEND Internal Medicine
DX: R59.1 Generalized enlarged lymph nodes (principal)

== ENCOUNTER 2021-02-05 02:13 | Emergency (ER) | payer OTHER ==
[~2021-02-05] VITALS: Ht 187.9 cm; Wt 125.6 kg
[~2021-02-05 02:13] MED LIST changes: -CLINDAMYCIN HC300 MG PO
[2021-02-05] MEDS ORDERED: CLINDAMYCIN HC300 MG PO (03:46)
[2021-02-05] MEDS ORDERED: KETOROLAC10 MG PO (03:46)
== END 2021-02-05 04:10 | disposition home or self-care (01) ==
LOC: ED 02:13
DX: K04.7 Periapical abscess without sinus (principal); Z88.0 Allergy status to penicillin; Z88.1 Allergy status to other antibiotic agents; Z88.8 Allergy status to other drugs, medicaments and biological substances; Z79.2 Long term (current) use of antibiotics; Z79.899 Other long term (current) drug therapy; Z98.890 Other specified postprocedural states; Z87.891 Personal history of nicotine dependence

== ENCOUNTER → 2021-06-18 | Outpatient (CLI) | payer OTHER ==
[~2021-06-18] MED LIST changes: +CLINDAMYCIN HC300 MG PO
== END | disposition home or self-care (01) ==
LOC: LAB 09:52
PROVIDERS: ATTEND Student in an Organized Health Care Education/Training Program
DX: Z86.14 Personal history of Methicillin resistant Staphylococcus aureus infection (principal)

== ENCOUNTER → 2021-11-25 | Outpatient (CLI) | payer OTHER ==
[2021-11-25 16:00] LABS: URINE AMPHETAMINES < 1000 (1000ng/ml); URINE BARBITURATES < 200 (200ng/ml); URINE BENZODIAZEPINES < 200 (200ng/ml); URINE CANNABINOIDS (THC) > 50 (50ng/ml); URINE COCAINE < 300 (300ng/ml); URINE METHADONE < 300 (300ng/ml); URINE OPIATES < 300 (300ng/ml)
[2021-11-25 16:05] LABS: URINE PHENCYCLIDINE < 25 (25ng/ml)
== END | disposition home or self-care (01) ==
LOC: LAB 15:01
PROVIDERS: ATTEND Family Medicine
DX: M54.42 Lumbago with sciatica, left side (principal)

== ENCOUNTER → 2021-12-15 | Outpatient (CLI) | payer OTHER | END | disposition home or self-care (01) | LOC: US 12:47 | PROVIDERS: ATTEND Family Medicine | DX: E04.1 Nontoxic single thyroid nodule (principal) ==

== ENCOUNTER → 2022-02-14 | Outpatient (CLI) | payer OTHER | END | disposition home or self-care (01) | LOC: CARD 10:22 | PROVIDERS: ATTEND Internal Medicine Cardiovascular Disease | DX: I35.8 Other nonrheumatic aortic valve disorders (principal) ==

== ENCOUNTER → 2022-04-04 | Outpatient (CLI) | payer OTHER ==
[~2022-04-04] MED LIST changes: +BENTYL10 MG/1 ML IM; +COREG6.25 MG PO; +GLUCOPHAGE500 MG PO; +HYDR25T PO; +IMDUR SA30 MG PO; +KLOR-CON M2020 ME1 PO; +LEVOTHYROXINE75 MCG PO; +METFORMIN HYDR500 MG PO; +OMEPRAZOLE40 MG PO; +PEPCID40 MG PO; +PROAIR HFA8.5 GM INH
== END | disposition home or self-care (01) ==
LOC: RAD 15:40
PROVIDERS: ATTEND Family Medicine
DX: R06.89 Other abnormalities of breathing (principal)

== ENCOUNTER → 2022-04-13 | Outpatient (CLI) | payer OTHER | END | disposition home or self-care (01) | LOC: RAD 16:34 | PROVIDERS: ATTEND Family Medicine | DX: M53.3 Sacrococcygeal disorders, not elsewhere classified (principal) ==

== ENCOUNTER 2022-08-27 18:01 | Emergency (ER) | payer OTHER ==
[~2022-08-27] VITALS: Ht 190.5 cm; Wt 136.1 kg
[2022-08-27 19:17] LABS: BASO # 0.1 10*3/uL (0.0-0.1); BASO % 0.8 % (0.0-1.0); EOS # 0.2 10*3/uL (0.0-0.4); EOS % 3.5 % (1.0-4.0); HEMATOCRIT 43.3 % (42.0-52.0); LYMPH # 2.5 10*3/uL (1.3-4.4); LYMPH % 37.4 % (27.0-41.0); MEAN CELL VOLUME 85.9 fl (80.0-94.0); MEAN CORPUSCULAR HGB 30.2 pg (27.0-31.0); MEAN CORPUSCULAR HGB CONC 35.1 g/dl (33.0-37.0); MONO # 0.4 10*3/uL (0.1-1.0); MONO % 5.8 % (3.0-9.0); NEUT # 3.4 10*3/uL (2.3-7.9); NEUT % 52.3 % (47.0-73.0); PLATELET COUNT AUTOMATED 337 10*3/uL (130-400); RED BLOOD COUNT 5.04 10*6/uL (4.50-5.90); RED CELL DISTRI WIDTH 13.2 % (0-14.5); WHITE BLOOD COUNT 6.6 10*3/uL (4.8-10.8)
[2022-08-27 19:34] LABS: ALKALINE PHOSPHATASE 97 U/L (46-116); BUN 9 mg/dl (9-23); CHLORIDE 100 mmol/L (98-107); LIPASE 49 U/L (12-53); POTASSIUM 3.5 mmol/L (3.4-5.1); SGPT/ALT 126 U/L (10-49); TOTAL PROTEIN 8.1 gm/dL (6.0-8.0)
[2022-08-27 19:55] LABS: BILIRUBIN Negative (Negative); BLOOD Negative (Negative); CLARITY Clear (Clear); COLOR Yellow (Yellow); GLUCOSE Negative (Negative); KETONE Negative (Negative); LEUKO ESTERASE Negative (Negative); NITRITE Negative (Negative); UROBILINOGEN 0.2 E.U./dl (0.0-1.0)
[2022-08-27 20:29] LABS: BACTERIA 1+; HYALINE CAST 31-40; RBC 0-2 rbc/hpf (0-2)
[2022-08-27] MEDS ORDERED: COMPAZINE10 M1 PO (22:26)
== END 2022-08-27 23:03 | disposition home or self-care (01) ==
LOC: ED 18:01
PROVIDERS: Nurse Practitioner Family
DX: A08.4 Viral intestinal infection, unspecified (principal); J45.909 Unspecified asthma, uncomplicated; F41.9 Anxiety disorder, unspecified; F31.9 Bipolar disorder, unspecified; I10 Essential (primary) hypertension; Z88.0 Allergy status to penicillin; Z88.1 Allergy status to other antibiotic agents; Z88.8 Allergy status to other drugs, medicaments and biological substances; Z98.890 Other specified postprocedural states; Z87.891 Personal history of nicotine dependence

== ENCOUNTER → 2022-09-19 | Outpatient (CLI) | payer OTHER ==
[~2022-09-19] MED LIST changes: +COMPAZINE10 M1 PO
== END | disposition home or self-care (01) ==
LOC: CT 13:42
PROVIDERS: ATTEND Specialist
DX: R06.00 Dyspnea, unspecified (principal); R06.1 Stridor; K76.0 Fatty (change of) liver, not elsewhere classified

== ENCOUNTER 2022-11-30 05:43 | Emergency (ER) | payer OTHER ==
[~2022-11-30] VITALS: Ht 190.5 cm; Wt 140.6 kg
[2022-11-30 07:14] LABS: BILIRUBIN Negative (Negative); BLOOD Negative (Negative); CLARITY Clear (Clear); COLOR Yellow (Yellow); GLUCOSE 2+ (Negative); KETONE Trace (Negative); LEUKO ESTERASE Negative (Negative); NITRITE Negative (Negative); PH 5.5 (4.5-8.0); SPECIFIC GRAVITY 1.025 (1.001-1.030); UROBILINOGEN 0.2 E.U./dl (0.0-1.0)
[2022-11-30 08:14] LABS: RBC 0-2 rbc/hpf (0-2)
[2022-11-30 08:15] LABS: BACTERIA TRACE; EPITHELIAL CELLS 0-2; MUCOUS TRACE; WBC 0-2 wbc/hpf (0-5)
[2022-11-30 08:48] LABS: BASO % 0.7 % (0.0-1.0); EOS # 0.3 10*3/uL (0.0-0.4); EOS % 4.7 % (1.0-4.0); HEMATOCRIT 43.6 % (42.0-52.0); LYMPH # 2.3 10*3/uL (1.3-4.4); LYMPH % 40.8 % (27.0-41.0); MEAN CELL VOLUME 86.7 fl (80.0-94.0); MEAN CORPUSCULAR HGB 29.8 pg (27.0-31.0); MEAN CORPUSCULAR HGB CONC 34.4 g/dl (33.0-37.0); MEAN PLATELET VOLUME 10.5 fl (9.6-12.3); MONO # 0.4 10*3/uL (0.1-1.0); MONO % 7.3 % (3.0-9.0); NEUT # 2.6 10*3/uL (2.3-7.9); NEUT % 46.3 % (47.0-73.0); PLATELET COUNT AUTOMATED 239 10*3/uL (130-400); RED BLOOD COUNT 5.03 10*6/uL (4.50-5.90); RED CELL DISTRI WIDTH 12.8 % (0-14.5); WHITE BLOOD COUNT 5.5 10*3/uL (4.8-10.8)
[2022-11-30 08:57] LABS: ACT PARTIAL THROMBO TIME 25.3 SECONDS (20.0-32.1)
[2022-11-30 09:20] LABS: ALKALINE PHOSPHATASE 98 U/L (46-116); BUN 12 mg/dl (9-23); CHLORIDE 99 mmol/L (98-107); LIPASE 50 U/L (12-53); POTASSIUM 3.4 mmol/L (3.4-5.1); SGPT/ALT 88 U/L (10-49); TOTAL PROTEIN 7.6 gm/dL (6.0-8.0)
== END 2022-11-30 12:22 | disposition home or self-care (01) ==
LOC: ED 05:43
PROVIDERS: Emergency Medicine
DX: N39.498 Other specified urinary incontinence (principal); Z88.0 Allergy status to penicillin; Z88.1 Allergy status to other antibiotic agents; Z88.8 Allergy status to other drugs, medicaments and biological substances; Z79.899 Other long term (current) drug therapy; Z87.891 Personal history of nicotine dependence

== ENCOUNTER → 2023-04-10 | Outpatient (CLI) | payer OTHER ==
[~2023-04-10] MED LIST changes: +CLONIDINE HCL0.1 MG PO; +DOXEPIN50 MG PO
[2023-04-10 10:36] LABS: ALKALINE PHOSPHATASE 103 U/L (46-116); BUN 7 mg/dl (9-23); CHLORIDE 99 mmol/L (98-107); SGPT/ALT 67 U/L (10-49); TOTAL PROTEIN 8.3 gm/dL (6.0-8.0)
== END | disposition home or self-care (01) ==
LOC: LAB 09:36
PROVIDERS: ATTEND Surgery
DX: R10.11 Right upper quadrant pain (principal)

== ENCOUNTER → 2023-08-22 | Outpatient (CLI) | payer OTHER | END | disposition home or self-care (01) | LOC: RAD 10:16 | PROVIDERS: ATTEND Podiatrist Foot & Ankle Surgery | DX: M79.672 Pain in left foot (principal) ==

== ENCOUNTER 2024-11-03 01:09 | Emergency (ER) | payer OTHER ==
[~2024-11-03] VITALS: Ht 190.5 cm; Wt 124.7 kg
[2024-11-03] MEDS ORDERED: BENADRYL ALLERG50 MG PO (02:23)
[2024-11-03] MEDS ORDERED: diphenhydrAMINE hydrochloride 25 MG CAP PO ONE (02:25)
[2024-11-03] MEDS ORDERED: methylPREDNISolone sod succ 125 MG VIAL IM ONE (02:25)
== END 2024-11-03 02:32 | disposition home or self-care (01) ==
LOC: ED 01:09
DX: L23.7 Allergic contact dermatitis due to plants, except food (principal); I10 Essential (primary) hypertension; Z88.0 Allergy status to penicillin; Z88.1 Allergy status to other antibiotic agents; Z88.8 Allergy status to other drugs, medicaments and biological substances; Z79.899 Other long term (current) drug therapy; J44.9 Chronic obstructive pulmonary disease, unspecified; K21.9 Gastro-esophageal reflux disease without esophagitis; E03.9 Hypothyroidism, unspecified; E11.40 Type 2 diabetes mellitus with diabetic neuropathy, unspecified; Z86.711 Personal history of pulmonary embolism; Z98.890 Other specified postprocedural states; Z87.891 Personal history of nicotine dependence

== ENCOUNTER → 2024-12-16 | Outpatient (CLI) | payer OTHER ==
[~2024-12-16] MED LIST changes: +BENADRYL ALLERG50 MG PO; +Regadenoson 0.4 MG/5 ML SYR IV ONE
== END | disposition home or self-care (01) ==
LOC: CARD 11-25 08:30
PROVIDERS: ATTEND Internal Medicine Cardiovascular Disease
DX: R06.02 Shortness of breath (principal); R07.89 Other chest pain

== ENCOUNTER → 2025-01-07 | Outpatient (CLI) | payer OTHER ==
[~2025-01-07] MED LIST changes: -Regadenoson 0.4 MG/5 ML SYR IV ONE
== END ==
LOC: RAD 12:00
PROVIDERS: ATTEND Nurse Practitioner Family
DX: J44.9 Chronic obstructive pulmonary disease, unspecified (principal); R06.02 Shortness of breath

== ENCOUNTER 2025-04-01 14:43 | Emergency (ER) | payer OTHER ==
[~2025-04-01] VITALS: Ht 190.5 cm; Wt 131.5 kg
[2025-04-01] MEDS ORDERED: SODIUM CHLORIDE 0.9% 500 ML IV ONE (15:10)
[2025-04-01] MEDS ORDERED: Ondansetron Hydrochloride 4 MG/2 ML VIAL IV ONE (15:10)
[2025-04-01 15:26] LABS: BASO # 0.0 10*3/uL (0.0-0.1); BASO % 0.5 % (0.0-1.0); EOS # 0.3 10*3/uL (0.0-0.4); EOS % 5.5 % (1.0-4.0); MEAN CELL VOLUME 85.8 fl (80.0-94.0); MEAN CORPUSCULAR HGB 29.9 pg (27.0-31.0); MEAN PLATELET VOLUME 10.0 fl (9.6-12.3); MONO # 0.3 10*3/uL (0.1-1.0); MONO % 5.5 % (3.0-9.0); NEUT # 3.1 10*3/uL (2.3-7.9); NEUT % 51.5 % (47.0-73.0); NUCLEATED RED BLOOD CELL 0.0 % (0.0-0.0); NUCLEATED RED BLOOD CELL 0.0 10*3/uL (0.0-0.0); PLATELET COUNT AUTOMATED 288 10*3/uL (130-400); RED CELL DISTRI WIDTH 12.3 % (0-14.5)
[2025-04-01 15:45] LABS: BUN 12 mg/dl (9-23)
[2025-04-01 15:54] LABS: BILIRUBIN Negative (Negative); BLOOD Negative (Negative); CLARITY Clear (Clear); COLOR Yellow (Yellow); KETONE Negative (Negative); LEUKO ESTERASE Negative (Negative); NITRITE Negative (Negative); PH 5.0 (4.5-8.0); SPECIFIC GRAVITY 1.015 (1.001-1.030); UROBILINOGEN 0.2 E.U./dl (0.0-1.0)
[2025-04-01 16:06] LABS: MUCOUS 1+
[2025-04-01] MEDS ORDERED: PREDNISONE20 M1 PO (16:24)
[2025-04-01] MEDS ORDERED: HYDROCODONE-AC1 EAC1 PO (16:24)
== END 2025-04-01 16:45 | disposition home or self-care (01) ==
LOC: ED 14:43
PROVIDERS: Emergency Medicine
DX: S39.011A Strain of muscle, fascia and tendon of abdomen, initial encounter (principal); Z98.890 Other specified postprocedural states; Z88.0 Allergy status to penicillin; Z88.1 Allergy status to other antibiotic agents; Z88.8 Allergy status to other drugs, medicaments and biological substances; Z79.899 Other long term (current) drug therapy; Z79.84 Long term (current) use of oral hypoglycemic drugs; Z87.891 Personal history of nicotine dependence; X50.1XXA Overexertion from prolonged static or awkward postures, initial encounter; X50.0XXA Overexertion from strenuous movement or load, initial encounter; Y93.89 Activity, other specified; Y92.89 Other specified places as the place of occurrence of the external cause; Y99.8 Other external cause status

== ENCOUNTER 2025-06-18 12:04 | Emergency (ER) | payer OTHER ==
[~2025-06-18] VITALS: Ht 190.5 cm; Wt 129.3 kg
[~2025-06-18 12:04] MED LIST changes: +HYDROCODONE-AC1 EAC1 PO; +PREDNISONE20 M1 PO
[2025-06-18] MEDS ORDERED: METHOCARBAMOL 750 MG TAB PO ONE (12:50)
[2025-06-18] MEDS ORDERED: Dexamethasone Sodium Phospha 20 MG/5 ML VIAL IM ONE (12:50)
[2025-06-18] MEDS ORDERED: METHOCARBAMOL750 M1 PO (13:52)
== END 2025-06-18 14:29 | disposition home or self-care (01) ==
LOC: ED 12:04
DX: S30.0XXA Contusion of lower back and pelvis, initial encounter (principal); S30.11XA Contusion of abdominal wall, initial encounter; J44.89 Other specified chronic obstructive pulmonary disease; F41.9 Anxiety disorder, unspecified; I10 Essential (primary) hypertension; F20.9 Schizophrenia, unspecified; F31.9 Bipolar disorder, unspecified; Z87.891 Personal history of nicotine dependence; Z98.890 Other specified postprocedural states; Z88.0 Allergy status to penicillin; Z88.1 Allergy status to other antibiotic agents; Z88.8 Allergy status to other drugs, medicaments and biological substances